=== PATIENT | male | born 1945 | race Hispanic/Latino ===

== ENCOUNTER → 2023-02-12 | Outpatient (CLI) | payer OTHER ==
[~2023-02-12] MED LIST: DELNIDO FORMULA 1 BAG IV ONE; NITROGLYCERIN 50MG/D5W 250ML 1 BOT ONE
== END | disposition home or self-care (01) ==
LOC: SHCH 08:12
PROVIDERS: ATTEND Internal Medicine Cardiovascular Disease
DX: I35.1 Nonrheumatic aortic (valve) insufficiency (principal); I25.10 Atherosclerotic heart disease of native coronary artery without angina pectoris
CPT/HCPCS: 93306; J3490 ×2

== ENCOUNTER → 2023-02-25 | Outpatient (CLI) | payer OTHER | END | disposition home or self-care (01) | LOC: SHCH 08:19 | PROVIDERS: ATTEND Internal Medicine Cardiovascular Disease | DX: I73.9 Peripheral vascular disease, unspecified (principal) | CPT/HCPCS: 93925 ==

== ENCOUNTER → 2023-06-10 | Outpatient (CLI) | payer OTHER ==
[2023-06-10 12:45] LABS: BASOPHILS # (AUTO) 0.08 K/uL (0.00-0.20); BASOPHILS % (AUTO) 0.8 % (0.0-5.0); EOSINOPHILS # (AUTO) 0.16 K/uL (0.00-0.70); EOSINOPHILS % (AUTO) 1.6 % (0.0-8.0); HEMATOCRIT 42.9 % (42-54); IMMATURE GRANULOCYTE ABSOLUTE 0.05 K/uL (0-1); LYMPHOCYTES # (AUTO) 2.2 K/uL (1.0-4.8); LYMPHOCYTES % (AUTO) 22.1 % (21.0-51.0); MEAN CORPUSCULAR HEMOGLOBIN 30.2 pg (27.0-33.0); MEAN CORPUSCULAR HGB CONC 33.1 g/dL (32.0-36.0); MEAN CORPUSCULAR VOLUME 91.3 fL (79-99); MONOCYTES # (AUTO) 0.7 K/uL (0.1-1.0); MONOCYTES % (AUTO) 7.2 % (3.0-13.0); NEUTROPHILS # (AUTO) 6.7 K/uL (1.8-7.7); NEUTROPHILS % (AUTO) 67.8 % (40.0-77.0); PLATELET COUNT (AUTO) 279 K/uL (130-400); RED CELL DISTRIBUTION WIDTH 13.6 % (11.0-15.5); WHITE BLOOD COUNT (AUTO) 9.9 K/uL (4.8-10.8)
[2023-06-10 12:54] LABS: INR < 0.93 (0.85-1.15); PROTHROMBIN TIME 10.3 SEC (9.6-11.6)
[2023-06-10 12:55] LABS: CREATININE 0.8 mg/dL (0.5-1.5); PARTIAL THROMBOPLASTIN TIME 28.2 SEC (26.3-35.5); POTASSIUM 4.4 mmol/L (3.5-5.1)
== END | disposition home or self-care (01) ==
LOC: LAB 09:48
PROVIDERS: ATTEND Internal Medicine Cardiovascular Disease
DX: Z01.812 Encounter for preprocedural laboratory examination (principal); I10 Essential (primary) hypertension; I25.10 Atherosclerotic heart disease of native coronary artery without angina pectoris; I77.9 Disorder of arteries and arterioles, unspecified; E78.5 Hyperlipidemia, unspecified; I73.9 Peripheral vascular disease, unspecified; R09.89 Other specified symptoms and signs involving the circulatory and respiratory systems; Z95.1 Presence of aortocoronary bypass graft; Z79.899 Other long term (current) drug therapy
CPT/HCPCS: 36415; 80048; 85025; 85610; 85730

== ENCOUNTER → 2023-10-02 | Outpatient (CLI) | payer OTHER | END | disposition home or self-care (01) | LOC: SHCH 08:51 | PROVIDERS: ATTEND Internal Medicine Cardiovascular Disease | DX: I70.203 Unspecified atherosclerosis of native arteries of extremities, bilateral legs (principal) | CPT/HCPCS: 93925 ==

== ENCOUNTER → 2024-03-08 | Outpatient (CLI) | payer OTHER | END | disposition home or self-care (01) | LOC: SHCH 11:00 | PROVIDERS: ATTEND Internal Medicine Cardiovascular Disease | DX: I73.9 Peripheral vascular disease, unspecified (principal) | CPT/HCPCS: 93925 ==

== ENCOUNTER → 2024-07-13 | Outpatient (CLI) | payer OTHER ==
--- NOTE | 2024-07-13 17:59 | HMCSR ---
APPROVED REPORT Laterality: Bilateral Indications Claudication: , PAD VELOCITY AND DOPPLER WAVEFORM ANALYSIS IT INFRASTRUCTURE ARCHITECT (R) 87.0cm/sec, Biphasic, IT INFRASTRUCTURE ARCHITECT (L) 98.4cm/sec, Biphasic, Prof Fem Art. (R) 93.9cm/sec, Biphasic, Prof Fem Art. (L) 75.0cm/sec, Biphasic, Fem Art Prox. (R) 127.0cm/sec, Biphasic, Fem Art Prox. (L) 63.6cm/sec, Biphasic, Fem Art Mid. (R) 55.5cm/sec, Biphasic, Fem Art Mid. (L) 55.5cm/sec, Biphasic, Fem Art Dist (R) 84.0cm/sec, Biphasic, Fem Art Dist. (L) 58.7cm/sec, Biphasic, Pop Art(AK) (R) 66.1cm/sec, Biphasic, Pop Art (AK) (L) 43.2cm/sec, Biphasic, Pop Art (Fossa)(R) 69.3cm/sec, Biphasic, Pop Art (Fossa) (L) 448.6cm/sec, Biphasic, Severe > 75% Pop Art(BK) (R) 66.9cm/sec, Biphasic, Pop Art (BK) (L) 100.8cm/sec, Biphasic, ELECTRICAL SYSTEMS DESIGN ENGINEER Prox. (R) 44.0cm/sec, Monophasic, ELECTRICAL SYSTEMS DESIGN ENGINEER Prox. (L) 75.9cm/sec, Monophasic, ELECTRICAL SYSTEMS DESIGN ENGINEER Mid. (R) 51.4cm/sec, Monophasic, ELECTRICAL SYSTEMS DESIGN ENGINEER Mid. (L) 56.3cm/sec, Monophasic, ELECTRICAL SYSTEMS DESIGN ENGINEER Dist. (R) 33.4cm/sec, Monophasic, ELECTRICAL SYSTEMS DESIGN ENGINEER Dist. (L) 33.4cm/sec, Monophasic, Per Art Prox. (R) 22.4cm/sec, Monophasic, Per Art Prox. (L) 63.6cm/sec, Biphasic, Per Art Mid. (R) 45.6cm/sec, Monophasic, Per Art Mid. (L) 53.0cm/sec, Biphasic, Per Art Dist. (R) 45.6cm/sec, Monophasic, Per Art Dist. (L) 32.6cm/sec, Monophasic, CLARY Prox. (R) 152.0cm/sec, Biphasic, Mild < 50% CLARY Prox. (L) 67.7cm/sec, Monophasic, CLARY Mid. (R) 61.2cm/sec, Monophasic CLARY Mid. (L) 58.7cm/sec, Monophasic, CLARY Dist. (R) 81.0cm/sec, Monophasic, CLARY Dist. (L) 106.3cm/sec, Monophasic, Technologist Impression Right tibioperoneal trunk velocity 355 cm/sec, suggestive of >75% stenosis. Monophasic waveforms in the Right ELECTRICAL SYSTEMS DESIGN ENGINEER and Peroneal arteries. Right proximal CLARY is suggestive of <50% stenosis, with monophasic waveforms distally. Significant velocites in the Left mid Popliteal artery, suggestive of >75% stenosis. Monophsaic waveforms in the Left ELECTRICAL SYSTEMS DESIGN ENGINEER, CLARY and distal Peroneal arteries. Conclusion Severe stenosis of left popliteal artery greater than 75% Severe right tibioperoneal trunk stenosis greater than 75% Severe infrapopliteal PAD Consider formal angiography Conclusion Severe stenosis of left popliteal artery greater than 75% Severe right tibioperoneal trunk stenosis greater than 75% Severe infrapopliteal PAD Consider formal angiography
== END | disposition home or self-care (01) ==
LOC: SHCH 09:11
PROVIDERS: ATTEND Internal Medicine Cardiovascular Disease
DX: I70.203 Unspecified atherosclerosis of native arteries of extremities, bilateral legs (principal)
CPT/HCPCS: 93925

== ENCOUNTER 2024-11-12 05:48 | Day surgery (SDC) | payer OTHER ==
[2024-11-10 10:57] LABS: BASOPHILS # (AUTO) 0.08 K/uL (0.00-0.20); BASOPHILS % (AUTO) 0.9 % (0.0-5.0); EOSINOPHILS # (AUTO) 0.16 K/uL (0.00-0.70); EOSINOPHILS % (AUTO) 1.9 % (0.0-8.0); HEMATOCRIT 43.5 % (42-54); IMMATURE GRANULOCYTE ABSOLUTE 0.03 K/uL (0-1); LYMPHOCYTES # (AUTO) 1.9 K/uL (1.0-4.8); LYMPHOCYTES % (AUTO) 22.3 % (21.0-51.0); MEAN CORPUSCULAR HEMOGLOBIN 30.1 pg (27.0-33.0); MEAN CORPUSCULAR HGB CONC 32.6 g/dL (32.0-36.0); MEAN CORPUSCULAR VOLUME 92.2 fL (79-99); MONOCYTES # (AUTO) 0.6 K/uL (0.1-1.0); MONOCYTES % (AUTO) 7.1 % (3.0-13.0); NEUTROPHILS # (AUTO) 5.8 K/uL (1.8-7.7); NEUTROPHILS % (AUTO) 67.4 % (40.0-77.0); PLATELET COUNT (AUTO) 223 K/uL (130-400); RED BLOOD CELL COUNT(AUTO) 4.72 MIL/uL (4.50-6.20); RED CELL DISTRIBUTION WIDTH 13.7 % (11.0-15.5); WHITE BLOOD COUNT (AUTO) 8.6 K/uL (4.8-10.8)
[2024-11-10 11:20] LABS: B-TYPE NATRIURETIC PEPTIDE 45 pg/mL (0-100)
[2024-11-10 11:23] LABS: CREATININE 0.8 mg/dL (0.5-1.3); POTASSIUM 5.3 mmol/L (3.5-5.1)
[2024-11-10 11:26] VITALS: BP 159/74; PULSE 64; RESP 16; TEMP 97.2
[2024-11-10 11:35] LABS: INR 1.05 (0.85-1.15); PROTHROMBIN TIME 11.1 SEC (9.6-11.6)
[2024-11-10 11:36] LABS: PARTIAL THROMBOPLASTIN TIME 33.9 SEC (26.3-35.5)
--- NOTE | 2024-11-10 15:43 | NUR ---
VERIFIED CALLED RIANA ROQUE/DEAN NURSE TO SEE IF PT NEEDED TO STOP XARELTO. PT TO CONTINUE WITH LOW DOSE XARELTO EVEN AM OF PROCEDURE. PT NOTIFIED AND VOICED UNDERSTANDING
--- NOTE | 2024-11-11 13:51 | NUR ---
report reported potassium level to oswaldo pagan. received orders to repeat in am
[~2024-11-12] VITALS: Ht 172.7 cm; Wt 69.9 kg
[2024-11-12] VITALS (11 sets, daily range): BP systolic 105–176; BP diastolic 51–75; PULSE 53–63; RESP 12–18; TEMP 97–97.4
[~2024-11-12 05:48] MED LIST changes: +ATOR40TA71 PO; +CARV6.25 PO; -DELNIDO FORMULA 1 BAG IV ONE; +EMPA25TA PO; +GLIP10TA16 PO; +METF-446 PO; -NITROGLYCERIN 50MG/D5W 250ML 1 BOT ONE; +RIVA2.5T PO
[2024-11-12] MEDS: 0.9%NACL 1000ML 1,000 ML IV SCH (07:07)
[2024-11-12] MEDS ORDERED: IODIXANOL 320 MG/ML 100 ML VIAL ONE (07:17)
[2024-11-12] MEDS ORDERED: HEParin-NS 1,000 UNIT/500 ML 1,000 ML IV ONE (07:17)
[2024-11-12] MEDS ORDERED: LIDOCAINE HCL 400MG/20ML VIAL ONE (07:17)
[2024-11-12] MEDS ORDERED: MIDAZOLAM HCL 1 MG/ML 2ML VIAL ONE ×2 (07:28→08:29)
[2024-11-12] MEDS ORDERED: FENTanyl CITRate PF 50 MCG/1 ML 2ML VIAL ONE (07:28)
[2024-11-12] MEDS ORDERED: HEParin 10,000 UNIT/10ML (1,000 UNIT/ML) VIAL ONE (07:44)
[2024-11-12] MEDS ORDERED: cloPIDOgrel 300MG TAB ONE (08:38)
[2024-11-12] MEDS ORDERED: 0.9%NACL 1000ML 1,000 ML IV SCH (09:00)
[2024-11-12] MEDS ORDERED: hydrALAZine 20MG/ML VIAL IV PRN (09:00)
[2024-11-12] MEDS ORDERED: DEXTROSE 50%-WATER 50 ML DISP.SYRIN IV PRN (09:00)
[2024-11-12] MEDS ORDERED: GLUCAGON 1MG KIT 1 MG ML IM PRN (09:00)
[2024-11-12] MEDS ORDERED: NITROGLYCERIN 0.4 MG SL TAB SL PRN (09:00)
--- NOTE | 2024-11-12 09:12 | PRN ---
Procedure Note INDICATION FOR PROCEDURE: [] Peripheral arterial disease with symptom limiting claudication Diabetic angiopathy PROCEDURE: [] Conscious sedation Right common femoral arterial sheath placement 65 cm six Kyrgyz sheath from right common femoral artery up and over parked into left superficial femoral artery Catheter placement to left popliteal artery with a 0.035 in many catheter with pressure measurement and contrast injection. Lithotripsy angioplasty to left popliteal artery with the use of a 5 mm by 60 mm shockwave balloon for a total of six treatments at six atmospheres Drug coated balloon angioplasty to left popliteal artery with the use of a 6 mm by 60 mm Askemtronic IN [place] CT balloon deployed to eight atmospheres for 3 minutes Angioplasty to entirety of left posterior tibial artery proximal mid and distal segment with the use of a 2.5 mm x 80 mm Laureen cross balloon deployed to eight atmospheres 2 minutes H x3 inflations total in an overlapping fashion Runoff to right lower extremity and left lower extremity DATE OF PROCEDURE: November 12, 2024 EXCHANGE MECHANIC: Wayne Montes De Oca MD, F.A.C.C. PROCEDURE NOTE: [] Patient was electively brought to catheterization suite and prepped and draped in sterile fashion. An IV was started if not already in place in both groins were exposed for arterial access. 2% lidocaine was used for local anesthesia in the day micropuncture kit was used to gain access and what is free flow and blood was seen modified Seldinger technique was utilized to place a six Kyrgyz sheath into the right common femoral artery. Next an Omni flush catheter was then placed into the abdominal aorta pressure measurements were obtained and then aortogram was performed which helped direct Omni flush catheter and our Glidewire to be placed to the left side and parked in the left popliteal artery under fluoroscopic guidance. Next the Omni flush catheter was removed short six Kyrgyz sheath was removed and a 65 cm sheath was placed in the right common femoral artery up and over and parked in the mid distal left superficial femoral artery. Continent this was then connected to pressure and contrast injections were performed with the findings as described below. I glide wire was kept in place and then a mini catheter was placed over Glidewire and parked into the proximal left popliteal artery and connected to pressure which was noted to be n ormal a contrast injection was performed revealing patient to have critical stenosis of left popliteal artery 99% and was severely calcified patient was noted to have three-vessel runoff noted to the left foot and we replaced the Glidewire with a 0.014 in run-through wire which was able to cross this lesion and then we parked it into the distal left posterior tibial artery under fl uoroscopic guidance. Next a 5 mm x 60 mm shockwave balloon was then placed into the left popliteal artery and deployed to six atmospheres and deployed for a total of six treatments before balloon popped this was then removed and then a 2.5 mm x 80 mm Laureen cross balloon was then placed in the distal left posterior tibial artery and deployed to eight atmospheres for 2 minutes. This was then brought back in overlapping fashion to the mid section and then the proximal segment each being deployed to eight atmospheres for 2 minutes each for a total of three inflations. Next a 6 mm by 60 mm REAL SAMURAI IN PA CT balloon was then placed into the left popliteal artery and deployed to eight atmospheres for 3 minutes. Follow up contrast injections revealed no evidence of dissection or perforation in either the left popliteal artery are left posterior tibial artery. Next the long sheath was replaced with a short sheath after wires were pulled and then runoff was done to the right lower extremity with findings as described below. At end of case a Mynx device was used for closure of arteriotomy site and no complications occurred. FINDINGS: [] The abdominal aorta is calcified slightly aneurysmal. Renal arteries were not visualized. Bilateral common iliac external iliac and common femoral arteries were noted to be significantly calcified. Bilateral profunda femoris and superficial femoral arteries are noted to be significantly calcified. There was a 99% critical stenosis of the left popliteal artery at the joint sp jase and it was severely calcified. There are sequential lesions of the left posterior tibial artery with 80% in the proximal mid and distal segment. There was no significant stenosis noted of the right SFA or right popliteal artery. There are sequential lesions within the right [employer] and CLARY of 80% IMPRESSION: [] Critical stenosis of left popliteal artery and bilateral infrapopliteal arteries Successful lithotripsy angioplasty and drug coated balloon angioplasty to left popliteal artery Successful angioplasty to left posterior tibial artery PLAN: [] Continue with Xarelto therapy Initiate aspirin 81 mg daily Initiate clopidogrel at 75 mg daily No driving 24 hours Discharged home later today after IV fluids were completed WAYNE MONTES DE OCA MD Nov 12, 2024 09:12
--- NOTE | 2024-11-12 10:22 | EKG ---
[facility] Test Date: 2024-11-12 Test Time: 10:07:42 Pat Name: CARO KAPLAN Department: [facility] Room: [facility] Gender: M Farm Equipment Assembler: [id number] : 1945 Requested By: VENITA PUCKETT Order Number: [id number] Reading MD: Starla Sanchez Measurements Intervals [place] Rate: 62 P: 0 SC: 85 QRS: 27 QRSD: 106 T: 52 QT: 428 QTc: 410 Interpretive Statements Sinus rhythm Ventricular premature complex Consider anteroseptal infarct No previous ECG available for comparison Electronically Signed On 11-12-2024 10:57:41 CDT by Starla Sanchez Please click the below link to view image of tracing.
--- NOTE | 2024-11-12 11:20 | NUR ---
DR. PUCKETT IN TO SEE PT, PT DID TELL DR. PUCKETT HE HAD SOME CHEST DISCOMFORT BUT HAS SUBSIDED DR. PUCKETT SAW EKG, NO OTHER INTERVENTIONS DONE
== END 2024-11-12 15:28 | disposition home or self-care (01) ==
LOC: DAH 05:48
PROVIDERS: ATTEND Internal Medicine Cardiovascular Disease
DX: E11.51 Type 2 diabetes mellitus with diabetic peripheral angiopathy without gangrene (principal); I70.213 Atherosclerosis of native arteries of extremities with intermittent claudication, bilateral legs; I71.40 Abdominal aortic aneurysm, without rupture, unspecified; E78.5 Hyperlipidemia, unspecified; I10 Essential (primary) hypertension; I25.10 Atherosclerotic heart disease of native coronary artery without angina pectoris; Z95.1 Presence of aortocoronary bypass graft; Z83.3 Family history of diabetes mellitus; Z88.0 Allergy status to penicillin; Z79.01 Long term (current) use of anticoagulants; Z79.82 Long term (current) use of aspirin; Z79.84 Long term (current) use of oral hypoglycemic drugs; Z79.899 Other long term (current) drug therapy
CPT/HCPCS: 80048; 83880; 85025; 85610; 85730; 36415 ×2; 75625; 37228; 84132; 82948; 93005; 75716; C9764; C1887; C1725 ×2; C1769 ×2; C1894 ×2; C2623; C1760; J3010; J3490; J7030; J1644 ×2; J2250 ×2; Q9967; A4215; A4222; A4221; A4663; A4216; A4606; A4223 ×3; 96360; 96361; 99156; 99157